=== PATIENT | female | born 2000 | race Two or more races ===

== ENCOUNTER 2019-05-06 04:41 | Emergency (ER) | payer OTHER ==
[~2019-05-06] VITALS: Ht 167.6 cm; Wt 46.9 kg
[2019-05-06 04:42] VITALS: BP 107/64
[2019-05-06] MEDS ORDERED: ONDANSETRON ODT 4 MG PO ONE (05:00)
[2019-05-06] MEDS ORDERED: ONDANSETRON ODT 4 MG ONE (05:09)
[2019-05-06 05:27] LABS: RAPID INFLUENZA A Negative (Negative); RAPID INFLUENZA B Negative (Negative)
== END 2019-05-06 06:18 | disposition home or self-care (01) ==
LOC: ED 06:12
DX: B34.9 Viral infection, unspecified (principal); R11.2 Nausea with vomiting, unspecified
CPT/HCPCS: 87400; 99283; Q0162

== ENCOUNTER 2020-10-24 11:02 | Emergency (ER) | payer MEDICAID ==
[~2020-10-24] VITALS: Ht 167.6 cm; Wt 48.9 kg
--- NOTE | 2020-10-24 11:30 | NUR ---
11 WEEKS AND 3 DAY . STARTED BLEEDING TODAY. [facility]. PT RESTING IN BED WITH AT BEDSIDE. RETURNED FROM BATHROOM WITH STEADY GAIT. ATTACHED TO MONITORS. VSS. WOODARD. UA COLLECTED.
[2020-10-24 11:54] LABS: MICROSCOPIC INDICATED
--- NOTE | 2020-10-24 12:16 | NUR ---
OMEGA PA TO BEDSIDE FOR EVALUATION. PT POSTIONED TO COMFORT. VSS. YAMILET. AT BEDSIDE.
[2020-10-24 12:39] LABS: BASOPHILS % (AUTO) 1 % (0-1); EOSINOPHILS % (AUTO) 1 % (1-7); LYMPHOCYTES % (AUTO) 20 % (22-44); MEAN CORPUSCULAR HEMOGLOBIN 31.8 pg (27.0-34.8); MEAN CORPUSCULAR HGB CONC 33.7 g/dL (32.4-35.8); MEAN PLATELET VOLUME 8.7 fL (7.4-10.4); MONOCYTES % (AUTO) 7 % (2-9); NEUTROPHILS % (AUTO) 72 % (42-75); PLATELET COUNT 196 x10^3/uL (130-400); RED BLOOD COUNT 4.13 x10^6/uL (3.82-5.3); RED CELL DISTRIBUTION WIDTH 13.3 % (9.6-15.2)
[2020-10-24 12:47] LABS: MD NO
[2020-10-24 12:48] LABS: ALBUMIN 3.9 g/dL (3.4-5.0); ANION GAP 6 mmol/L (5-15); CALCIUM 8.5 mg/dL (8.5-10.1); CHLORIDE 107 mmol/L (98-107)
[2020-10-24 13:08] LABS: ALANINE AMINOTRANSFERASE 19 U/L (12-78); ALKALINE PHOSPHATASE 45 U/L (45-117); BILIRUBIN,TOTAL 0.7 mg/dL (0.2-1.0); CREATININE 0.56 mg/dL (0.55-1.02)
--- NOTE | 2020-10-24 13:17 | NUR ---
US AT BEDSIDE. DELFIN.
--- NOTE | 2020-10-24 13:26 | NUR ---
DR. OBANDO TO BEDSIDE FOR EVALUATION.
[2020-10-24 14:23] VITALS: BP 106/67
== END 2020-10-24 14:41 | disposition home or self-care (01) ==
LOC: ED 14:35
DX: O20.0 Threatened abortion (principal); O20.8 Other hemorrhage in early pregnancy; Z3A.11 11 weeks gestation of pregnancy
CPT/HCPCS: 36415; 76801; 80053; 81001; 84702; 85025; 86901; 87086; 99285

== ENCOUNTER 2020-10-27 20:47 | Emergency (ER) | payer BC ==
[~2020-10-27] VITALS: Ht 167.6 cm; Wt 49.3 kg
--- NOTE | 2020-10-27 20:50 | NUR ---
PT CAME INTO ED THIS EVENING DUE TO SPOTTING AND BEING 8 WEEKS . PT REPORTS BEING HERE LAST MONDAY BUT IS CONCERNED DUE TO CONTINUED BLEEDING. PT RESTING ON GURNEY, NAD, PROVIDED WARM BLANKETS FOR COMFORT, PLACED ON SPO2/BP MONITORING. JENIFER CASTANEDA AT BS. SO AT BS. WCTM.
--- NOTE | 2020-10-27 21:45 | NUR ---
PT RESTING ON GUCONNIE, US AT BS, UA OBTAINED AND SENT TO LAB. PT NAD, SO AT BS, MONITORING IN PLACE FOR VITAL SIGNS, VSS, WCTM. WAITING FOR US
[2020-10-27 21:47] LABS: BASOPHILS % (AUTO) 1 % (0-1); EOSINOPHILS % (AUTO) 0 % (1-7); LYMPHOCYTES % (AUTO) 23 % (22-44); MEAN CORPUSCULAR HEMOGLOBIN 31.9 pg (27.0-34.8); MEAN CORPUSCULAR HGB CONC 34.2 g/dL (32.4-35.8); MEAN PLATELET VOLUME 8.6 fL (7.4-10.4); MONOCYTES % (AUTO) 7 % (2-9); NEUTROPHILS % (AUTO) 69 % (42-75); PLATELET COUNT 200 x10^3/uL (130-400); RED BLOOD COUNT 4.08 x10^6/uL (3.82-5.3); RED CELL DISTRIBUTION WIDTH 13.3 % (9.6-15.2)
[2020-10-27 21:48] LABS: MD NO
[2020-10-27 21:56] LABS: ALBUMIN 3.7 g/dL (3.4-5.0); ANION GAP 7 mmol/L (5-15); CALCIUM 8.7 mg/dL (8.5-10.1); CHLORIDE 107 mmol/L (98-107); CREATININE 0.59 mg/dL (0.55-1.02)
--- NOTE | 2020-10-27 22:43 | NUR ---
PT RESTING ON MITALI, NAD, NO CHANGE IN CONDITION, VSS, WCTM. WAITING FOR US.
--- NOTE | 2020-10-27 23:20 | NUR ---
pt provided clean underwear pads for use. nad, denies additional needs, vss, wctm.
[2020-10-28] VITALS: BP 97/55
--- NOTE | 2020-10-28 00:24 | NUR ---
pt nad, resting on gurney, no change in condition, chart up for recheck. wctm.
== END 2020-10-28 01:08 | disposition home or self-care (01) ==
LOC: MERGE 20:47 → ED 21:32
DX: O20.0 Threatened abortion (principal); Z3A.08 8 weeks gestation of pregnancy
CPT/HCPCS: 36415; 76801; 80048; 82040; 84702; 85025; 86901; 99284

== ENCOUNTER 2020-12-14 01:07 | Emergency (ER) | payer BC ==
[~2020-12-14] VITALS: Ht 167.6 cm; Wt 48.4 kg
[2020-12-14 02:54] LABS: BASOPHILS % (AUTO) 1 % (0-1); EOSINOPHILS % (AUTO) 1 % (1-7); LYMPHOCYTES % (AUTO) 26 % (22-44); MEAN CORPUSCULAR HEMOGLOBIN 33.1 pg (27.0-34.8); MONOCYTES % (AUTO) 8 % (2-9); NEUTROPHILS % (AUTO) 65 % (42-75); PLATELET COUNT 196 x10^3/uL (130-400); RED BLOOD COUNT 3.89 x10^6/uL (3.82-5.3); RED CELL DISTRIBUTION WIDTH 13.6 % (9.6-15.2)
[2020-12-14 03:06] LABS: ALANINE AMINOTRANSFERASE 14 U/L (12-78); ANION GAP 7 mmol/L (5-15); CALCIUM 8.3 mg/dL (8.5-10.1); CHLORIDE 107 mmol/L (98-107); CREATININE 0.47 mg/dL (0.55-1.02)
--- NOTE | 2020-12-14 03:15 | NUR ---
First contact with patient: patient presents to ER c/o vag bleed since approx 0100. Denies vag discharge, abd cramping, or N/V. Patient denies hx of miscarriages. Patient is in NAD. Respirations even and unlabored.
--- NOTE | 2020-12-14 03:15 | NUR ---
PT BACK TO ROOM
[2020-12-14 03:24] LABS: ALKALINE PHOSPHATASE 54 U/L (45-117); BILIRUBIN,TOTAL 0.4 mg/dL (0.2-1.0); TOTAL PROTEIN 6.8 g/dL (6.4-8.2)
--- NOTE | 2020-12-14 03:37 | NUR ---
Urine collected and sent to lab.
[2020-12-14 03:44] LABS: MICROSCOPIC INDICATED
[2020-12-14 04:30] VITALS: BP 98/59
== END 2020-12-14 04:33 | disposition home or self-care (01) ==
LOC: ED 02:32
DX: O23.42 Unspecified infection of urinary tract in pregnancy, second trimester (principal); O20.9 Hemorrhage in early pregnancy, unspecified; Z3A.16 16 weeks gestation of pregnancy
CPT/HCPCS: 36415; 76815; 80053; 81001; 84702; 85025; 86850; 86900; 87086; 99284

== ENCOUNTER 2020-12-14 15:02 | Emergency (ER) | payer BC ==
[~2020-12-14] VITALS: Ht 167.6 cm; Wt 47.9 kg
[2020-12-14 19:39] VITALS: BP 109/73
== END 2020-12-14 19:40 | disposition home or self-care (01) ==
LOC: ED 15:32
DX: O20.9 Hemorrhage in early pregnancy, unspecified (principal); Z3A.15 15 weeks gestation of pregnancy
CPT/HCPCS: 99281